=== PATIENT | male | born 1960 | race Caucasian/White ===

== ENCOUNTER 2024-05-26 13:55 | Inpatient (IN) | payer OTHER ==
[~2024-05-26] VITALS: Ht 177.8 cm; Wt 75.7 kg
[2024-05-26] MEDS ORDERED: PIPERACI/TAZO 3.375GM/D5W 50ML PB IV ONE (14:29)
[2024-05-26] MEDS ORDERED: ACETAMINOPHEN 650 MG/SUPP.RECT RC ONE (14:29)
[2024-05-26 14:36] LABS: BASOPHILS % (AUTO) 0.2 % (0.0-2.0); HEMATOCRIT 41 % (39-51); HEMOGLOBIN 13.3 g/dL (13.5-17.5); LYMPHOCYTES # (AUTO) 0.4 K/uL (0.8-4.8); LYMPHOCYTES % (AUTO) 2.5 % (20.0-44.0); MEAN CORPUSCULAR HEMOGLOBIN 28 PG (26.0-33.0); MEAN CORPUSCULAR HGB CONC 32 g/dl (31.0-36.0); MEAN CORPUSCULAR VOLUME 87 fL (80-96); MONOCYTES # (AUTO) 0.8 K/uL (0.1-1.30); MONOCYTES % (AUTO) 4.8 % (2.0-12.0); NEUTROPHILS # (AUTO) 15.9 K/uL (1.8-8.9); NEUTROPHILS % (AUTO) 92.5 % (43.0-81.0); PLATELET COUNT (AUTO) 98 K/uL (150-450); RED BLOOD CELL COUNT(AUTO) 4.76 MIL/uL (4.5-6.0); RED CELL DISTRIBUTION WIDTH 15.3 % (11.5-15.0); WHITE BLOOD COUNT (AUTO) 17.2 K/uL (4.3-11.0)
[2024-05-26] MEDS: ACETAMINOPHEN 650 MG/SUPP.RECT RC ONE (14:40)
[2024-05-26 14:49] LABS: APPEARANCE,URINE Slightly Cloudy (CLEAR); BILIRUBIN,URINE SMALL (NEGATIVE); BLOOD, URINE Large Ery/uL (NEGATIVE); COLOR,URINE YELLOW (YELLOW); KETONES,URINE Trace mg/dL (NEGATIVE); LEUKOCYTE ESTERASE ,URINE Small (NEGATIVE); NITRITE, URINE Negative (NEGATIVE); PH,URINE 6.5 (5.0-8.0); PROTEIN,URINE >=300 mg/dl (NEGATIVE); UGLUCOSE Negative (NEGATIVE)
[2024-05-26 14:49] LABS: INR 1.15 (0.91-1.10); PARTIAL THROMBOPLASTIN TIME 30.3 SEC (24.3-34.3); PROTHROMBIN TIME 11.7 SECS (9.2-11.1)
[2024-05-26] MEDS: PIPERACILLIN /TAZOBACTAM 3.375 G in IV D5W 50 ML IV ONE (14:50)
[2024-05-26 14:55] LABS: LACTIC ACID 2.2 mmol/L (0.4-2.0)
[2024-05-26] MEDS: IV NS 0.9% 1,000 ML BAG IV ONE (14:55)
[2024-05-26 14:58] LABS: CARBON DIOXIDE 26 mmol/L (21-32); CHLORIDE 104 mmol/L (98-107); GLUCOSE 178 mg/dL (74-106); POTASSIUM 3.5 mmol/L (3.5-5.1); SODIUM SERUM 138 mmol/L (136-145); UREA NITROGEN, BLOOD 22 mg/dL (7-18)
[2024-05-26 15:03] LABS: ALANINE AMINOTRANSFERASE 18 U/L (12-78); ALBUMIN 3.2 g/dL (3.4-5.0); ALKALINE PHOSPHATASE 101 U/L (46-116); ASPARTATE AMINOTRANSFERASE 34 U/L (15-37); BILIRUBIN,DIRECT 0.5 mg/dL (0.0-0.2); BILIRUBIN,TOTAL 1.9 mg/dL (0.2-1.0); TOTAL PROTEIN, SERUM 7.7 g/dL (6.4-8.2)
[2024-05-26] MEDS ORDERED: POLY17PO4 PO (15:04)
[2024-05-26] MEDS ORDERED: BISA10SU11 RC (15:04)
[2024-05-26] MEDS ORDERED: OXYC5TAB3 PO (15:04)
[2024-05-26] MEDS ORDERED: ROSU10TA2 PO (15:04)
[2024-05-26] MEDS ORDERED: MULT-213 PO (15:04)
[2024-05-26] MEDS ORDERED: MUPI22OI7 TP (15:04)
[2024-05-26] MEDS ORDERED: METF-440 PO (15:04)
[2024-05-26] MEDS ORDERED: ARIP5TAB10 PO (15:04)
[2024-05-26] MEDS ORDERED: ASPI-1169 PO (15:04)
[2024-05-26] MEDS ORDERED: NALO4SPR NS (15:04)
[2024-05-26] MEDS ORDERED: BISA5TAB10 PO (15:04)
[2024-05-26] MEDS ORDERED: CLOP75TA15 PO (15:04)
[2024-05-26] MEDS ORDERED: GABA600T12 PO (15:04)
[2024-05-26] MEDS ORDERED: TAMS-12 PO (15:04)
[2024-05-26] MEDS ORDERED: NA P133E RC (15:04)
[2024-05-26] MEDS ORDERED: BLOO-668 IN (15:04)
[2024-05-26] MEDS ORDERED: ASCO-352 PO (15:04)
[2024-05-26] MEDS ORDERED: MAGN400O6 PO (15:04)
[2024-05-26] MEDS ORDERED: ACET-868 PO (15:04)
[2024-05-26] MEDS ORDERED: ALBU8.5H8 IH (15:04)
[2024-05-26] MEDS ORDERED: LAMO25TA10 PO (15:04)
[2024-05-26] MEDS ORDERED: TRAZ-257 PO (15:04)
[2024-05-26] MEDS ORDERED: OMEP40CA21 PO (15:04)
[2024-05-26] MEDS: VANCOMYCIN 1 GM in IV D5W 250 ML IV ONE (15:05)
[2024-05-26 15:09] LABS: ADD URINE CULTURE YES; BACTERIA,URINE Few /HPF (None Seen); RBC,URINE 21-50 /HPF (0-2); WBC,URINE 81-100 /HPF (0-3)
[2024-05-26 15:10] LABS: SQUAMOUS EPITHELIAL CELL,UR Few /HPF (None Seen)
[2024-05-26] MEDS: AZITHROMYCIN 500 MG in IV D5W 250 ML IV ONE (16:25)
[2024-05-26 22:29] LABS: BAND % (MANUAL) 8 % (0.0-5.0); LYMPHOCYTES % (MANUAL) 4 % (16-48); MONOCYTES % (MANUAL) 4 % (0-11.0); NEUTROPHILS % (MANUAL) 84 (42-76); PLATELET ESTIMATE DECREASED
[2024-05-26 22:30] LABS: ANISOCYTOSIS 1+
[2024-05-27] VITALS (7 sets, daily range): BP systolic 98–141; BP diastolic 65–85; TEMP 97.9–99.2; O2SAT 96–98
[2024-05-27] MEDS ORDERED: ONDANSETRON HCL/PF 4 MG/2 ML VIAL IVP PRN
[2024-05-27] MEDS ORDERED: hydrALAZINE HCL IV 20 MG VIAL IV PRN
[2024-05-27] MEDS: IV NS 0.9% 1,000 ML IV SCH (00:53)
[2024-05-27] MEDS ORDERED: CEFEPIME 1 GM VIAL ONE (00:55)
[2024-05-27] MEDS: CEFEPIME 1 GM in IV D5W 50 ML IV ONE (01:01)
[2024-05-27] MEDS: ACETAMINOPHEN 325 MG TABLET PO PRN (01:05)
[2024-05-27] MEDS: CEFEPIME 2 GM in IV D5W 100 ML IV SCH (08:29)
[2024-05-27] MEDS ORDERED: HEPARIN SODIUM, PORCINE 5000 UNITS/1 ML VIAL SQ SCH (09:00)
[2024-05-27] MEDS: VANCOMYCIN 1 GM in IV D5W 250ml IV SCH (09:08)
[2024-05-28] VITALS (8 sets, daily range): BP systolic 104–124; BP diastolic 75–87; TEMP 98.2–98.8; O2SAT 97–99
[2024-05-28] MEDS: MORPHINE SULFATE INJ 2 MG/ML DISP.SYRIN IV PRN (00:44)
[2024-05-28 09:08] LABS: BASOPHILS % (AUTO) 0.4 % (0.0-2.0); EOSINOPHILS # (AUTO) 0.3 K/uL (0.0-0.7); EOSINOPHILS % (AUTO) 4.3 % (0.0-6.0); HEMATOCRIT 38 % (39-51); HEMOGLOBIN 12.3 g/dL (13.5-17.5); LYMPHOCYTES # (AUTO) 0.8 K/uL (0.8-4.8); LYMPHOCYTES % (AUTO) 9.9 % (20.0-44.0); MEAN CORPUSCULAR HEMOGLOBIN 28 PG (26.0-33.0); MEAN CORPUSCULAR HGB CONC 33 g/dl (31.0-36.0); MEAN CORPUSCULAR VOLUME 87 fL (80-96); MONOCYTES # (AUTO) 0.4 K/uL (0.1-1.30); MONOCYTES % (AUTO) 5.6 % (2.0-12.0); NEUTROPHILS % (AUTO) 79.8 % (43.0-81.0); PLATELET COUNT (AUTO) 101 K/uL (150-450); RED BLOOD CELL COUNT(AUTO) 4.34 MIL/uL (4.5-6.0); RED CELL DISTRIBUTION WIDTH 15.2 % (11.5-15.0); WHITE BLOOD COUNT (AUTO) 7.5 K/uL (4.3-11.0)
[2024-05-28 09:30] LABS: ALBUMIN 2.4 g/dL (3.4-5.0); BILIRUBIN,TOTAL 0.9 mg/dL (0.2-1.0); CALCIUM, SERUM 8.5 mg/dL (8.5-10.1); CREATININE 0.6 mg/dL (0.6-1.3); MAGNESIUM 2.5 mg/dL (1.8-2.4); PHOSPHORUS 1.9 mg/dL (2.5-4.9); POTASSIUM 3.3 mmol/L (3.5-5.1); TOTAL PROTEIN, SERUM 6.9 g/dL (6.4-8.2)
[2024-05-28] MEDS: K PHOS NEUTRAL 250 MG TABLET PO ONE (16:12)
[2024-05-28] MEDS: VANCOMYCIN 1 GM in IV D5W 250ml IV SCH (17:40)
[2024-05-29] VITALS: BP 109/79; TEMP 98.1; O2SAT 98
[2024-05-29 04:00] VITALS: BP 113/80; TEMP 97.5; O2SAT 98
[2024-05-29 07:23] LABS: CALCIUM, SERUM 8.9 mg/dL (8.5-10.1); CREATININE 0.7 mg/dL (0.6-1.3); PHOSPHORUS 3.2 mg/dL (2.5-4.9); POTASSIUM 2.9 mmol/L (3.5-5.1)
[2024-05-29 07:25] LABS: BASOPHILS % (AUTO) 0.5 % (0.0-2.0); EOSINOPHILS # (AUTO) 0.3 K/uL (0.0-0.7); EOSINOPHILS % (AUTO) 4.3 % (0.0-6.0); HEMATOCRIT 37 % (39-51); HEMOGLOBIN 12.2 g/dL (13.5-17.5); LYMPHOCYTES # (AUTO) 0.7 K/uL (0.8-4.8); LYMPHOCYTES % (AUTO) 9.4 % (20.0-44.0); MEAN CORPUSCULAR HEMOGLOBIN 28 PG (26.0-33.0); MEAN CORPUSCULAR HGB CONC 33 g/dl (31.0-36.0); MEAN CORPUSCULAR VOLUME 86 fL (80-96); MONOCYTES # (AUTO) 0.5 K/uL (0.1-1.30); NEUTROPHILS # (AUTO) 5.7 K/uL (1.8-8.9); NEUTROPHILS % (AUTO) 78.8 % (43.0-81.0); PLATELET COUNT (AUTO) 108 K/uL (150-450); RED BLOOD CELL COUNT(AUTO) 4.32 MIL/uL (4.5-6.0); RED CELL DISTRIBUTION WIDTH 15.2 % (11.5-15.0); WHITE BLOOD COUNT (AUTO) 7.2 K/uL (4.3-11.0)
[2024-05-29 08:00] VITALS: BP 109/79; TEMP 99.1; O2SAT 98
[2024-05-29 12:00] VITALS: BP 114/81; TEMP 98.6; O2SAT 98
[2024-05-29] MEDS ORDERED: POLYETHYLENE GLYCOL 3350 17 GM POWD.PACK PO PRN (13:30)
[2024-05-29] MEDS ORDERED: NA PHOS,M-B/NA PHOS,DI-BA 1 EA ENEMA RC PRN (13:30)
[2024-05-29] MEDS ORDERED: ACETAMINOPHEN 325 MG TABLET PO PRN (13:30)
[2024-05-29] MEDS ORDERED: ALBUTEROL FS 2.5 MG/3 ML VIAL.NEB NEB PRN (13:30)
[2024-05-29] MEDS ORDERED: BISACODYL SUPP (10 MG) 10 MG/SUPP.RECT SUPP.RECT RC PRN (13:30)
[2024-05-29] MEDS: POTASSIUM CHLORIDE 20 MEQ TAB.PRT.SR PO ONE ×2 (14:09)
[2024-05-29 16:00] VITALS: BP 111/79; TEMP 99; O2SAT 98
[2024-05-29] MEDS: GABAPENTIN 300 MG CAPSULE PO SCH (16:13)
[2024-05-29 20:00] VITALS: BP 111/79; TEMP 98; O2SAT 97
[2024-05-29] MEDS: LamoTRIgine 25 MG TABLET PO SCH (21:31)
[2024-05-29] MEDS: TRAZODONE 50 MG TABLET PO SCH (21:32)
[2024-05-30] VITALS: BP 98/73; TEMP 98.9; O2SAT 97
[2024-05-30] MEDS: MUPIROCIN OINT 2% 22 GM TUBE TP SCH (00:30)
[2024-05-30] MEDS: IV NS 0.9% 1,000 ML IV PRN (03:34)
[2024-05-30 04:00] VITALS: BP 106/78; TEMP 98.8; O2SAT 99
[2024-05-30 06:26] LABS: BASOPHILS # (AUTO) 0.1 K/uL (0.0-0.2); BASOPHILS % (AUTO) 0.6 % (0.0-2.0); EOSINOPHILS # (AUTO) 0.4 K/uL (0.0-0.7); EOSINOPHILS % (AUTO) 4.2 % (0.0-6.0); HEMATOCRIT 38 % (39-51); HEMOGLOBIN 12.5 g/dL (13.5-17.5); LYMPHOCYTES # (AUTO) 0.9 K/uL (0.8-4.8); MEAN CORPUSCULAR HEMOGLOBIN 28 PG (26.0-33.0); MEAN CORPUSCULAR HGB CONC 33 g/dl (31.0-36.0); MEAN CORPUSCULAR VOLUME 87 fL (80-96); MONOCYTES # (AUTO) 0.7 K/uL (0.1-1.30); MONOCYTES % (AUTO) 8.7 % (2.0-12.0); NEUTROPHILS # (AUTO) 6.3 K/uL (1.8-8.9); NEUTROPHILS % (AUTO) 75.5 % (43.0-81.0); PLATELET COUNT (AUTO) 128 K/uL (150-450); RED BLOOD CELL COUNT(AUTO) 4.41 MIL/uL (4.5-6.0); RED CELL DISTRIBUTION WIDTH 15.2 % (11.5-15.0); WHITE BLOOD COUNT (AUTO) 8.4 K/uL (4.3-11.0)
[2024-05-30 06:36] LABS: CREATININE 0.7 mg/dL (0.6-1.3); POTASSIUM 3.8 mmol/L (3.5-5.1)
[2024-05-30 08:00] VITALS: BP 117/86; TEMP 98.6; O2SAT 99
[2024-05-30] MEDS: BISACODYL (5 MG) 5 MG TABLET.DR PO SCH (09:00)
[2024-05-30] MEDS: MAGNESIUM HYDROXIDE 30 ML UDC PO SCH (09:00)
[2024-05-30] MEDS: ARIPIPRAZOLE 5 MG TABLET PO SCH (10:10)
[2024-05-30] MEDS: ASCORBIC ACID 500 MG TABLET PO SCH (10:10)
[2024-05-30] MEDS: CLOPIDOGREL BISULFATE 75 MG TABLET PO SCH (10:11)
[2024-05-30] MEDS: PANTOPRAZOLE 40 MG TABLET.DR PO SCH (10:11)
[2024-05-30] MEDS: ASPIRIN 81 MG TAB.CHEW PO SCH (10:11)
[2024-05-30] MEDS: TAMSULOSIN 0.4 MG CAP.SR.24H PO SCH (10:11)
[2024-05-30 12:00] VITALS: BP 117/86; TEMP 98.6; O2SAT 99
[2024-05-30] MEDS ORDERED: DOXY100C2 PO (13:45)
[2024-05-30] MEDS ORDERED: LEVO500T90 PO (13:45)
[2024-05-30] MEDS ORDERED: CEFE2FRO IV (13:46)
[2024-05-30] MEDS: VANCOMYCIN 750 MG in IV D5W 250 ML IV SCH (14:37)
[2024-05-30 16:00] VITALS: BP 99/74; TEMP 97.9; O2SAT 99
== END 2024-05-30 16:18 | DRG 300 ==
LOC: ER 14:15 → TELE1 22:08 → MEDSG1 05-30 11:19
PROVIDERS: ADMIT Internal Medicine; ATTEND Nurse Practitioner Family
DX: E11.52 Type 2 diabetes mellitus with diabetic peripheral angiopathy with gangrene (principal); I96 Gangrene, not elsewhere classified; L03.115 Cellulitis of right lower limb; N39.0 Urinary tract infection, site not specified; K21.9 Gastro-esophageal reflux disease without esophagitis; E11.42 Type 2 diabetes mellitus with diabetic polyneuropathy; I10 Essential (primary) hypertension; I70.0 Atherosclerosis of aorta; R53.1 Weakness; Z88.0 Allergy status to penicillin; Z88.8 Allergy status to other drugs, medicaments and biological substances; Z91.010 Allergy to peanuts; N39.9 Disorder of urinary system, unspecified; Z87.09 Personal history of other diseases of the respiratory system; Z79.51 Long term (current) use of inhaled steroids; Z79.84 Long term (current) use of oral hypoglycemic drugs; Z79.02 Long term (current) use of antithrombotics/antiplatelets; Z79.82 Long term (current) use of aspirin; Z79.899 Other long term (current) drug therapy; E87.6 Hypokalemia; F41.9 Anxiety disorder, unspecified; F32.A Depression, unspecified; F29 Unspecified psychosis not due to a substance or known physiological condition; G31.84 Mild cognitive impairment of uncertain or unknown etiology; B96.89 Other specified bacterial agents as the cause of diseases classified elsewhere; Z86.79 Personal history of other diseases of the circulatory system; Z98.890 Other specified postprocedural states
CPT/HCPCS: 36415; 70450-TC; 71045-TC; 80048-TC; 80053-TC; 80076-TC; 80202-TC; 81001; 83605-TC; 83735-TC; 84100-TC; 84484-TC; 85025-TC; 85730-TC; 87040-TC; 87086-TC; 93970-TC; 94799-TC; 97110-TC; 97530-TC; 97535-TC; A4223; A6253; A6403; G0378; J0456; J0692; J2270; J2543; J3370; J3371; J7030; J7060